=== PATIENT | female | born 1930 | race Caucasian/White ===

== ENCOUNTER 2017-01-08 14:03 | Emergency (ER) | payer OTHER ==
--- NOTE | 2017-01-08 14:08 | PDOC ---
History of Present Illness - General History Source: Patient Exam Limitations: No Limitations - History of Present Illness Initial Comments: 01/08/17 14:30 The patient is a 86 year old female, with a significant past medical history of HTN, spinal stenosis, who presents to the emergency department s/p mechanical fall about 10 days ago. The patient reports since the fall having pain in her left leg. She reports being able to walk on her left leg, but has pain with any weight bearing activities. She denies any LOC or head trauma from the fall. She denies any LE numbness and tingling. She denies recent fevers, chills, headache or dizziness. She denies recent nausea, vomit, diarrhea or constipation. She denies recent chest pain or shortness of breath. Allergies: NKA Past surgical history: Hysterectomy (years ago), Social history: Nonsmoker. Denies EtOH use and recreational drug use. Primary Care Physician: Dr.Anthony Khan <Antoine Rangel - Last Filed: 01/08/17 15:22> <Dario Montoya - Last Filed: 01/08/17 15:55> - General Chief Complaint: Pain, Acute Stated Complaint: LEFT LEG PAIN Time Seen by Provider: 01/08/17 14:07 Past History <Antoine Rangel - Last Filed: 01/08/17 15:22> <Dario Montoya - Last Filed: 01/08/17 15:55> - Past Medical History Allergies/Adverse Reactions: Allergies Allergy/AdvReac Type Severity Reaction Status Date / Time No Known Allergies Allergy Unverified 01/08/17 14:06 Home Medications: Ambulatory Orders Amlodipine Besylate 5 mg PO DAILY 01/08/17 Enalapril Maleate 20 mg PO DAILY 01/08/17 Walker [Ultra-Light Rollator] 1 each MC DAILY #1 each 01/08/17 Review of Systems - Review of Systems Able to Perform ROS?: Yes Comments:: 01/08/17 14:31 GENERAL/CONSTITUTIONAL: No fever or chills. No weakness. HEAD, EYES, EARS, NOSE AND THROAT: No change in vision. No ear pain or discharge. No sore throat. CARDIOVASCULAR: No chest pain or shortness of breath. RESPIRATORY: No cough, wheezing, or hemoptysis. GASTROINTESTINAL: No nausea, vomiting, diarrhea or constipation. GENITOURINARY: No dysuria, frequency, or change in urination. MUSCULOSKELETAL: +LLE pain. No joint or muscle swelling or pain. No neck or back pain. SKIN: No rash NEUROLOGIC: No headache, vertigo, loss of consciousness, or change in strength/ sensation. ENDOCRINE: No increased thirst. No abnormal weight change. HEMATOLOGIC/LYMPHATIC: No anemia, easy bleeding, or history of blood clots. ALLERGIC/IMMUNOLOGIC: No hives or skin allergy. <Antoine Rangel - Last Filed: 01/08/17 15:22> *Physical Exam - Vital Signs Last Vital Signs Temp Pulse Resp BP Pulse Ox 98.7 F 79 18 189/94 97 01/08/17 14:05 01/08/17 14:05 01/08/17 14:05 01/08/17 14:05 01/08/17 14:05 - Physical Exam Comments: 01/08/17 15:22 GENERAL: Awake, alert, and fully oriented, in no acute distress HEAD: No signs of trauma EYES: PERRLA, EOMI, sclera anicteric, conjunctiva clear ENT: Auricles normal inspection, hearing grossly normal, nares patent, oropharynx clear without exudates. Moist mucosa NECK: Normal ROM, supple, no lymphadenopathy, JVD, or masses LUNGS: Breath sounds equal, clear to auscultation bilaterally. No wheezes, and no crackles HEART: Regular rate and rhythm, normal S1 and S2, no murmurs, rubs or gallops ABDOMEN: Soft, nontender, normoactive bowel sounds. No guarding, no rebound. No masses EXTREMITIES: There is FROM of the left hip, including ER and IR rotation without pain or restriction. There is no external sign of injury, no bruising, ecchymosis, swelling, or edema of the thigh or lower leg. The pulses are full and symmetry. No sensory or motor deficits. No posterior calf swelling, tenderness, or cords. MIld tenderness over the ischial tuberosity of the buttock The pain seems to be only present with weight bearing, although she is ambulating well with only minimal limping. NEUROLOGICAL: Cranial nerves II through XII grossly intact. Normal speech, normal gait SKIN: Warm, Dry, normal turgor, no rashes or lesions noted. <Antoine Rangel - Last Filed: 01/08/17 15:22> *DC/Admit/Observation/Transfer - Attestations Scribe Attestion: 01/08/17 14:30 Documentation prepared by Antoine Rangel, acting as medical science liaison for Dario Briceno MD. <Antoine Rangel - Last Filed: 01/08/17 15:22> - Discharge Dispostion Admit: No <Dario Montoya - Last Filed: 01/08/17 15:55> Diagnosis at time of Disposition: Musculoskeletal pain - Discharge Dispostion Disposition: HOME Condition at time of disposition: Stable - Referrals Referrals: Dontrell Coughlin MD [Staff Physician] - 1 week - Patient Instructions Printed Discharge Instructions: DI for Tendinitis Additional Instructions: Gentle ice massage alternating with warm compresses/heat Tylenol for pain. Occasional Aleve or ibuprofen, Advil, or Motrin with as low a doses possible and not continuing more than one week. Maintain brief amounts of walking, but avoid prolonged standing and walking until pain improves. Using a walker may help. See orthopedist if there is no improvement or if condition worsens for further evaluation and treatment.
[2017-01-08 14:25] VITALS: BP 189/94; PULSE 79; TEMP 98.7; BMI 25.7
== END 2017-01-08 16:01 | disposition home or self-care (01) ==
LOC: FER 14:03
DX: M79.1 Myalgia (principal); I10 Essential (primary) hypertension; M48.00 Spinal stenosis, site unspecified; W18.30XA Fall on same level, unspecified, initial encounter; Y93.9 Activity, unspecified; Y92.9 Unspecified place or not applicable
CPT/HCPCS: 73523-TC; 99283-25

== ENCOUNTER 2018-01-14 09:15 | Emergency (ER) | payer OTHER ==
[2018-01-14 09:29] VITALS: BMI 27.2
[2018-01-14] MEDS ORDERED: SODIUM CHLORIDE 0.9% 500 ML INFUS.BAG IV ONE (09:32)
[2018-01-14] MEDS ORDERED: ACETAMINOPHEN 325 MG TABLET (FP) PO ONE (09:32)
[2018-01-14] MEDS ORDERED: LIDOCAINE 5% TOPICAL PATCH TP ONE (09:32)
--- NOTE | 2018-01-14 09:42 | PDOC ---
History of Present Illness - General Chief Complaint: Urinary Problem Stated Complaint: POSSIBLE UTI SWEATS AT HOME Time Seen by Provider: 01/14/18 09:17 History Source: Patient, Family - History of Present Illness Initial Comments: 01/14/18 09:42 Virgen 87 YOF with history of spinal stenosis, arthritis, HTN presenting with acute onset of sweats this morning upon waking up at 730am. States she was using warm water compress last night for back pain c/w chronic spinal stenosis. +urinary frequency with drinking water/hydrating, also notes darker urine. No dysuria, f/c, cp, sob, cough, n/v/d, abd pain, weakness or paresthesias, carlton or dizziness Past History - Past Medical History Allergies/Adverse Reactions: Allergies Allergy/AdvReac Type Severity Reaction Status Date / Time No Known Allergies Allergy Verified 01/14/18 09:17 Home Medications: Ambulatory Orders Amlodipine Besylate 5 mg PO DAILY 01/08/17 Enalapril Maleate 20 mg PO DAILY 01/08/17 Walker [Ultra-Light Rollator] 1 each MC DAILY #1 each 01/08/17 Cephalexin Monohydrate [Keflex -] 500 mg PO TID 10 Days #21 capsule 01/14/18 COPD: No HTN: Yes Other medical history: URINARY TRACT INFECTIONS, ARTHRITIS - Suicide/Smoking/Psychosocial Hx Smoking History: Never smoked Have you smoked in the past 12 months: No Information on smoking cessation initiated: No Hx Alcohol Use: No Drug/Substance Use Hx: No Substance Use Type: None Review of Systems - Review of Systems Able to Perform ROS?: Yes Comments:: 01/14/18 09:42 GENERAL/CONSTITUTIONAL: No fever or chills. No weakness. +sweats HEAD, EYES, EARS, NOSE AND THROAT: No sore throat or mouth pain. No difficulty swallowing.. No congestion. CARDIOVASCULAR: No chest pain or palpitations, syncope or edema. RESPIRATORY: No SOB, cough GASTROINTESTINAL No nausea/vomiting. No diarrhea or constipation. GENITOURINARY: +urinary frequency, dark urine. No hematuria, dysuria, urgency or other changes. MUSCULOSKELETAL: No joint or muscle swelling or pain. +chronic back pain. No neck pain SKIN: No rash or changes in skin color or lesions. NEUROLOGIC: No headache, vertigo, loss of consciousness, or change in strength/ sensation. No gait instability. No AMS/confusion ENDOCRINE: No increased thirst. No abnormal weight or appetite change or intolerance to heat/cold. HEMATOLOGIC/LYMPHATIC: No anemia, easy bruising/bleeding, or history of blood clots. ALLERGIC/IMMUNOLOGIC: No allergies All other systems reviewed and negative, or as documented in HPI. *Physical Exam - Vital Signs Last Vital Signs Temp Pulse Resp BP Pulse Ox 100.3 F H 105 H 18 175/92 98 01/14/18 09:29 01/14/18 09:16 01/14/18 09:16 01/14/18 09:16 01/14/18 09:16 - Physical Exam Comments: 01/14/18 09:42 General: Well appearing, awake and alert, NAD. HEENT: NCAT, PERRL, EOMI, clear conjunctiva, anicteric, moist mucus membranes, clear oropharynx, no oral lesions.. Neck: supple, no tenderness or LAD. Resp: CTAB, normal and even respirations, no respiratory distress CVS: RRR, no murmurs, 2+ peripheral pulses throughout, no peripheral edema Abdomen: soft, NTND, no peritoneal signs. No CVAT Back: nontender, normal inspection and ROM MSK: no edema, ADAMSON x4, ROM intact. No clubbing or cyanosis. normal bulk and tone. Neuro: alert, oriented appropriately; no focal neurologic deficits. Skin: warm and well perfused, cap refill <2 sec, normal color ED Treatment Course - LABORATORY CBC & Chemistry Diagram: 01/14/18 09:50 01/14/18 09:50 - RADIOLOGY Radiology Studies Ordered: Category Date Time Status CHEST X-RAY PORTABLE* [RAD] Stat Radiology 01/14/18 09:33 Ordered Medical Decision Making - Medical Decision Making 01/14/18 09:43 Virgen 87 YOF with history of spinal stenosis, arthritis, HTN presenting with acute onset of sweats and fever this morning. ?urinary sx. Vital signs notable for fever 100.3, likely contributing to sx. normotensive, HR in low 100s c/w fever. however, nontoxic, well appearing and no complaints. Interventions: IVF, tylenol. DDx. pneumonia, fever, UTI. basic labs, lactic, CXR and UA/Urine cx. no cp or sob, defer EKG testing. on clinical reassessment: fevers improved, remains well appearing and asymptomatic. tachycardia resolved, nonseptic appearing. CXR neg for pneumonia. labs reviewed, CBC wnl, lytes and Cr normal, no nsaids. hydrated, IV ceftriaxone x1 dose for acute UTI based on UA micro and clinical sx. reassured family, remains well, return precautions discussed, keflex TID PO x 10 day course and adequate hydration. antipyretics such as tylenol PRN fever control. spoke and updated PCP Dr. Khan over phone, agreeable to plan. pt's family verbalized clear understanding and no safety concerns, so no indication for admission at this time. plan: Return instructions provided -> Pt and family informed of my clinical impression, treatment recommendations and disposition plan. All questions answered to patient's satisfaction and she expressed understanding and comfort with this. Reasons for returning to the ED sooner discussed with the patient otherwise, follow up with her primary care physician. At the time of discharge, the patient is alert, improved, tolerating po and understands instructions. rx keflex x 10 day course, side effects discussed, if worsening sx >24-48 hours, return sooner for eval. 01/14/18 10:52 01/14/18 11:00 01/14/18 11:01 01/14/18 11:01 01/14/18 11:02 *DC/Admit/Observation/Transfer Diagnosis at time of Disposition: UTI (urinary tract infection) Qualifiers: Urinary tract infection type: acute cystitis Hematuria presence: with hematuria Qualified Code(s): N30.01 - Acute cystitis with hematuria - Discharge Dispostion Disposition: HOME Condition at time of disposition: Stable Decision to Admit order: No - Prescriptions Prescriptions: Cephalexin Monohydrate [Keflex -] 500 mg PO TID 10 Days #21 capsule - Referrals Referrals: Leo Khan MD [Primary Care Provider] - - Patient Instructions Printed Discharge Instructions: DI for Urinary Tract Infection (UTI), DI for Fever (Symptom) -- Adult Additional Instructions: Your laboratory / imaging results were normal, including your kidney function and electrolytes. you had a fever with a urinary tract infection. Follow up with your physician and consultants as instructed, take your medications as instructed including Keflex three times a day x 10 days. Return if worsening symptoms including fevers, headache, vomiting, visual or hearing disturbances, abdominal pain, chest pain, shortness of breath, syncope, dehydration, inability to take things by mouth/vomiting, altered mental status, or worsening concerning symptoms. your medications on discharge include antibiotics, side effects may include upset stomach, abdominal pain, vomiting, or diarrhea, if severe symptoms return sooner for evaluation. do not drink alcohol with your medications. Print Language: COLOMBIAN - Post Discharge Activity
[2018-01-14] MEDS ORDERED: ACETAMINOPHEN 325 MG TABLET (FP) ONE (09:48)
[2018-01-14 10:11] LABS: HEMATOCRIT 45.2 % (32.4-45.2); HEMOGLOBIN 15.4 GM/dl (10.7-15.3); MCH 31.4 pg (25.7-33.7); MCHC 34.1 g/dl (32.0-36.0); MEAN PLT VOLUME 8.1 fl (7.5-11.1); PLATELET COUNT 234 K/MM3 (134-434); RBC 4.92 M/mm3 (3.60-5.2); RDW 12.8 % (11.6-15.6); WHITE BLOOD COUNT 9.4 K/mm3 (4.0-10.8)
[2018-01-14 10:12] LABS: ADD RBC MORPHOLOGY YES
[2018-01-14 10:17] LABS: PLATELET ESTIMATE ADEQUATE
[2018-01-14 10:31] LABS: PH,URINE 5.5 (4.5-8); URINE BILIRUBIN Negative (NEGATIVE); URINE COLOR Yellow; URINE GLUCOSE (UA) Negative (NEGATIVE); URINE KETONE Negative (NEGATIVE); URINE NITRITE Negative (NEGATIVE); URINE UROBILINOGEN 0.2 (0.2-1.0)
[2018-01-14 10:32] LABS: URINE APPEARANCE SL CLOUDY; URINE LEUK ESTERASE 2+ (NEGATIVE); URINE PROTEIN 1+ (NEGATIVE)
[2018-01-14 10:33] LABS: ALBUMIN 4.4 g/dl (3.5-5.0); ALK PHOS 68 U/L (32-92); ANION GAP 9 (8-16); BILIRUBIN,TOTAL 0.8 mg/dl (0.2-1.0); BLOOD UREA NITROGEN 25 mg/dl (7-18); CALCIUM 9.6 mg/dl (8.4-10.2); CHLORIDE 98 mmol/L (98-107); CO2 26 mmol/L (22-28); CREATININE 0.9 mg/dl (0.6-1.3); GLUCOSE,RANDOM 143 mg/dl (74-106); POTASSIUM 4.5 mmol/L (3.5-5.1); SGOT/AST 27 U/L (10-42); SGPT/ALT 22 U/L (10-40); SODIUM 133 mmol/L (136-145); TOT PROT 7.7 g/dl (6.4-8.3)
[2018-01-14 10:44] LABS: URINE WBC 40-60 (0-5)
[2018-01-14 10:45] LABS: AMORP URATES FEW /hpf (NONE SEEN); EPI CELLS FEW /HPF; URINE BACTERIA MODERATE /hpf (NEGATIVE)
[2018-01-14] MEDS ORDERED: CEPHALEXIN MONOHYDRATE 500 MG CAPSULE (UD) PO ONE (10:49)
[2018-01-14 10:50] VITALS: BP 130/60; PULSE 87; TEMP 98.7
[2018-01-14] MEDS ORDERED: cefTRIAXone SODIUM 1 GM VIAL ONE (10:53)
[2018-01-14] MEDS ORDERED: LIDOCAINE PATCH REMOVAL MC SCH (22:00)
== END 2018-01-14 11:27 | disposition home or self-care (01) ==
LOC: SUPCPDRO 09:15 → FER 09:15
PROC: 3E03329 Introduction of Other Anti-infective into Peripheral Vein, Percutaneous Approach (ICD-10-PCS; principal; 2018-01-14)
PROC: 3E0337Z Introduction of Electrolytic and Water Balance Substance into Peripheral Vein, Percutaneous Approach (ICD-10-PCS; 2018-01-14)
DX: N30.01 Acute cystitis with hematuria (principal); G89.29 Other chronic pain; M54.9 Dorsalgia, unspecified; I10 Essential (primary) hypertension; M48.00 Spinal stenosis, site unspecified
CPT/HCPCS: 36415; 71045-TC-FY; 80053; 81003; 81015; 83605; 85025; 87086; 87186; 96361; 96374; 99282-25

== ENCOUNTER 2018-11-02 14:34 | Emergency (ER) | payer OTHER ==
[2018-11-02 14:41] VITALS: TEMP 98.3; BMI 27.4
[2018-11-02] MEDS ORDERED: ONDANSETRON 4 MG/2 ML VIAL IVPUSH ONE (15:47)
[2018-11-02] MEDS ORDERED: MECLIZINE HCL 25 MG TABLET (FP) PO ONE (15:47)
[2018-11-02] MEDS ORDERED: ONDANSETRON 4 MG/2 ML VIAL ONE (15:49)
[2018-11-02] MEDS ORDERED: MECLIZINE HCL 25 MG TABLET (FP) ONE (15:49)
[2018-11-02] MEDS ORDERED: SODIUM CHLORIDE 0.9% 500 ML INFUS.BAG IV ONE (15:49)
--- NOTE | 2018-11-02 16:01 | PDOC ---
Documentation entered by Evert Lechuga SCRIBE, acting as scribe for Maribel Pop MD. Maribel Pop MD: This documentation has been prepared by the Ankush bellamy Daniel, SCRIBE, under my direction and personally reviewed by me in its entirety. I confirm that the documentation accurately reflects all work, treatment, procedures, and medical decision making performed by me. History of Present Illness - General Chief Complaint: Lightheaded Stated Complaint: DIZZINESS History Source: Patient, Family Exam Limitations: No Limitations - History of Present Illness Initial Comments: 11/02/18 16:12 The patient is an 88 year old female with a past medical history of here today for spinal stenosis, arthritis, HTN, frequent UTIs, and solitary kidney evaluation of dizziness and nausea. As per the patients daughter the patient had a sudden onset of room spinning dizziness with associated nausea and vomiting at 12 PM. The patient reports that her nausea is worse with movement and notes one episode of burning with urination that has since resolved. Patient denies headache, lightheadedness. Denies fever, chills. Denies chest pain, shortness of breath. Denies nausea, vomiting, diarrhea, abdominal pain. Denies vision and hearing changes. Denies neurologic symptoms. Allergies: NSAIDS Social history: Denies illicit drug, alcohol, or tobacco use. PCP: Leo Khan Past History - Past Medical History Allergies/Adverse Reactions: Allergies Allergy/AdvReac Type Severity Reaction Status Date / Time NSAIDS (Non-Steroidal AdvReac Verified 11/02/18 14:51 Anti-Inflamma Home Medications: Ambulatory Orders Enalapril Maleate 20 mg PO DAILY 01/08/17 Hydrochlorothiazide [Hctz -] 25 mg PO DAILY 11/02/18 Meclizine HCl [Antivert -] 25 mg PO QID PRN #20 tablet 11/02/18 Ondansetron [Zofran Odt -] 4 mg SL TID PRN #9 od.tablet 11/02/18 COPD: No HTN: Yes - Suicide/Smoking/Psychosocial Hx Smoking History: Never smoked Have you smoked in the past 12 months: No Information on smoking cessation initiated: No Hx Alcohol Use: No Drug/Substance Use Hx: No Substance Use Type: None Review of Systems - Review of Systems Able to Perform ROS?: Yes Comments:: 11/02/18 16:12 Constitutional: no fevers or chills. HEENT: no headache or dizziness. No congestion. No visual/hearing disturbances. CVS: no cp or syncope. Resp: no sob. No cough. Gastrointestinal: +nausea. +vomiting. no abdominal pain. Genitourinary: no urinary sx, hematuria. MUSCULOSKELETAL: No joint pain and swelling. No neck or back pain. SKIN: no redness or skin changes, no discharge, no rash. No wounds. Hematologic: no easy bruising/bleeding. NEUROLOGIC: +dizziness. No headache, LOC or altered mental status. No weakness, numbness or tingling. Psych: no anxiety or depression Allergic/Immunologic: no allergies All other systems reviewed and negative, or as documented in HPI. *Physical Exam - Vital Signs Last Vital Signs Temp Pulse Resp BP Pulse Ox 98.3 F 87 18 146/101 H 98 11/02/18 14:35 11/02/18 14:35 11/02/18 14:35 11/02/18 14:35 11/02/18 14:35 - Physical Exam Comments: 11/02/18 16:13 General: Well appearing, awake and alert, NAD. HEENT: NCAT, PERRL, EOMI, clear conjunctiva, anicteric, moist mucus membranes, clear oropharynx, no oral lesions.. No nystagmus. Neck: neck supple, FROM Resp: CTAB, normal and even respirations, no respiratory distress CVS: RRR, no murmurs, 2+ peripheral pulses throughout, no peripheral edema Abdomen: soft, NTND, no rebound or guarding. No CVAT. Back: nontender, normal inspection and ROM MSK: no edema, ADAMSON x4, ROM intact. No clubbing or cyanosis. normal bulk and tone. Extremities: no calf tenderness Neuro: Alert, oriented to person time and place. No carotid bruit, CN II-XII grossly intact. Strength prox and distally 5/5 throughout. Sensation grossly intact to light touch. ADAMSON x4. No cerebellar signs, no dysmetria, bilateral finger to nose equal and symmetric. Speech clear. gait stable, no ataxia Skin: warm and well perfused, cap refill <2 sec, normal color 11/02/18 18:05 Heart Score/ECG Review #1 ECG reviewed & interpreted by me at: 14:45 General ECG Interpretation: Sinus Rhythm, Normal Rate Compared to previous ECG there are: No significant change 11/02/18 16:01 EKG normal sinus rhythm at 83 bpm, no interval abnormalities,Wide QRS with LBBB , ST and T wave segments and morphology normal. Nonspecific T wave abnormalities - unchanged. ED Treatment Course - LABORATORY CBC & Chemistry Diagram: 11/02/18 15:45 11/02/18 15:45 - RADIOLOGY Radiology Studies Ordered: Category Date Time Status HEAD CT WITHOUT CONTRAST [CT] Stat CT Scan 11/02/18 15:47 Ordered Medical Decision Making - Medical Decision Making 11/02/18 15:59 See HPI for details Vital signs reviewed, mildly hypertensive, but +acutely nauseous DDX vertigo, central vs peripheral, labrynthitis, BPPV, infection, dehydration, electrolyte imbalance, metabolic derangements, ACS Prior notes reviewed, including admissions, discharges and consultations. laboratory results and imaging reviewed, basic labs and lytes wnl, notable for mild hyponatremia, but not symptomatic, appears euvolemic, some vomiting so perhaps some hyponatremia component. UA_neg prelim for infection. no wbc and no leuk esterase, no other clinical sx of UTI. Cardiac panel_neg trop. doubt cardiac EKG normal sinus rhythm at 83 bpm, no interval abnormalities,Wide QRS with LBBB , ST and T wave segments and morphology normal. Nonspecific T wave abnormalities - unchanged. 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 parasinus disease - no focal neuro deficits, well appearing, n/v controlled. gait stable. BP and VS improved, NSR on tele monitor and 130/90s on discharge feels much improved, eager for discharge referrals given. instructions on meds, rx meclizine and zofran, side effect profile discussed, hydration and prevention. Discharge: Pt to be discharged in stable condition. Patient and family made aware of impression and plan, return precautions discussed (including but not limited to worsening pain or symptoms), fevers, or signs of infection, chest pain, respiratory distress, inability to tolerate oral intake, dehydration, syncope, or neurologic changes). Follow up with PMD and/or neuro specialist as recommended, follow up information provided, take medications as instructed for duration of time. continue with supportive care, avoid triggers and precipitants. All questions answered to patient's satisfaction and expressed understanding and comfort with this. Patient does not suffer from an acute life- threatening medical condition at this time and is safe for outpatient follow- up. 11/02/18 16:25 11/02/18 16:55 11/02/18 18:04 11/02/18 18:06 *DC/Admit/Observation/Transfer Diagnosis at time of Disposition: Vertigo - Discharge Dispostion Disposition: HOME Condition at time of disposition: Stable Decision to Admit order: No - Prescriptions Prescriptions: Meclizine HCl [Antivert -] 25 mg PO QID PRN #20 tablet PRN Reason: dizziness Ondansetron [Zofran Odt -] 4 mg SL TID PRN #9 od.tablet PRN Reason: Nausea - Referrals Referrals: Leo Khan MD [Primary Care Provider] - Luiz Campa MD [Staff Physician] - Iain Borden MD [Staff Physician] - Shukri Ferreira MD [Staff Physician] - - Patient Instructions Printed Discharge Instructions: DI for Vertigo Additional Instructions: 1) Please follow-up with your primary care doctor in the next 1-2 days. Please call tomorrow for for any urgent issues. you have likely peripheral vertigo that caused your symptoms 2) You were given a copy of the tests performed today. Please bring the results with you and review them with your primary care doctor. Your laboratory / imaging results were normal, including your blood work except for mildly low sodium [address] scan without acute brain pathology or new stroke 3) If you have any worsening of symptoms or any other concerns please return to the ED immediately. Return if worsening symptoms including fevers, headache, vomiting, visual or hearing disturbances, abdominal pain, chest pain, shortness of breath, syncope, dehydration, inability to take things by mouth/vomiting, altered mental status, weakness, paresthesias, falling or head injury, lethargy , visual or hearing disturbances, or worsening concerning symptoms. 4) Please continue taking your home medications as directed. your medications on discharge include zofran every 8 hours as needed for nausea and meclizine for dizziness. . side effects may include upset stomach, abdominal pain, vomiting, or diarrhea. do not drink alcohol with your medications. meclizine can cause dry mouth and drowsiness, do not drive Stay well hydrated and rest adequately. Make an appointment. If you cannot follow-up with your primary care doctor please return to the ED referrals to neurologist and ear nose throat doctor given. - Post Discharge Activity
[2018-11-02 16:37] LABS: BASO % 0.1 % (0-2.0); EOS % 1.8 % (0-4.5); HEMATOCRIT 40.6 % (32.4-45.2); HEMOGLOBIN 13.5 GM/dl (10.7-15.3); LYMPH % 17.6 % (8-40); MCH 30.9 pg (25.7-33.7); MCHC 33.2 g/dl (32.0-36.0); MEAN CELL VOLUME 92.9 fl (80-96); MEAN PLT VOLUME 8.6 fl (7.5-11.1); NEUT % 74.5 % (42.8-82.8); PLATELET COUNT 253 K/MM3 (134-434); RBC 4.36 M/mm3 (3.60-5.2); RDW 13.1 % (11.6-15.6); WHITE BLOOD COUNT 9.1 K/mm3 (4.0-10.8)
[2018-11-02 16:41] LABS: ALBUMIN 4.1 g/dl (3.4-5.0); BILIRUBIN,TOTAL 0.3 mg/dl (0.2-1); CALCIUM 9.3 mg/dl (8.5-10); CREATININE 0.8 mg/dl (0.55-1.3); POTASSIUM 4.4 mmol/L (3.5-5.1)
[2018-11-02 17:37] VITALS: BP 132/72; PULSE 79
--- NOTE | 2018-11-03 12:14 | EKG ---
Test Reason : Blood Pressure : / mmHG Vent. Rate : 083 BPM Atrial Rate : 083 BPM P-R Int : 200 ms QRS Dur : 144 ms QT Int : 410 ms P-R-T Axes : 029 -27 042 degrees QTc Int : 481 ms NORMAL SINUS RHYTHM LEFT BUNDLE BRANCH BLOCK ABNORMAL ECG WHEN COMPARED WITH ECG OF 17-NOV-2008 10:15, NO SIGNIFICANT CHANGE WAS FOUND Confirmed by MD Deepak, Evert ([id number]) on 11/03/2018 12:13:32 PM Referred By: RAUL PATTERSON Confirmed By:Evert Sotelo MD
== END 2018-11-02 18:23 | disposition home or self-care (01) ==
LOC: FER 14:34
PROC: 3E033GC Introduction of Other Therapeutic Substance into Peripheral Vein, Percutaneous Approach (ICD-10-PCS; principal; 2018-11-02)
PROC: 3E0337Z Introduction of Electrolytic and Water Balance Substance into Peripheral Vein, Percutaneous Approach (ICD-10-PCS; 2018-11-02)
DX: R42 Dizziness and giddiness (principal); I10 Essential (primary) hypertension; N28.89 Other specified disorders of kidney and ureter; M48.00 Spinal stenosis, site unspecified; Z87.440 Personal history of urinary (tract) infections
CPT/HCPCS: 36415; 70450-TC; 80053; 81003; 81015; 84484; 85025; 87086; 93005; 96361; 96374; 99284-25

== ENCOUNTER 2018-11-16 19:00 | Emergency (ER) | payer OTHER ==
[2018-11-16 19:06] VITALS: BP 162/78; PULSE 81; TEMP 98.4; BMI 27.1
[2018-11-16] MEDS ORDERED: GABAPENTIN 300 MG CAPSULE (FP) PO ONE (19:24)
[2018-11-16] MEDS ORDERED: DEXAMETHASONE SOD PHOSPHATE 4 MG/1 ML VIAL IM ONE (19:24)
[2018-11-16] MEDS ORDERED: LIDOCAINE 5% TOPICAL PATCH TP ONE (19:24)
[2018-11-16] MEDS ORDERED: DEXAMETHASONE SOD PHOSPHATE 4 MG/1 ML VIAL ONE (19:29)
[2018-11-16] MEDS ORDERED: CYCLOBENZAPRINE HCL 10 MG TABLET (FP) ONE (19:29)
[2018-11-16] MEDS ORDERED: GABAPENTIN 300 MG CAPSULE (FP) ONE (19:29)
[2018-11-16] MEDS ORDERED: LIDOCAINE 5% TOPICAL PATCH ONE (19:29)
[2018-11-16] MEDS ORDERED: CYCLOBENZAPRINE HCL 5 MG TABLET PO SCH (19:30)
--- NOTE | 2018-11-16 21:50 | PDOC ---
Documentation entered by Mary Jane Boyd SCRIBE, acting as scribe for Abbe Ware MD. Abbe Ware MD: This documentation has been prepared by the Oliver bellamy Aiswarya, SCRIBE, under my direction and personally reviewed by me in its entirety. I confirm that the documentation accurately reflects all work, treatment, procedures, and medical decision making performed by me. History of Present Illness - General Chief Complaint: Back Pain Stated Complaint: LOWER BACK PAIN Time Seen by Provider: 11/16/18 19:14 History Source: Patient Exam Limitations: No Limitations - History of Present Illness Initial Comments: 11/16/18 20:05 The patient is a 88 year old female, with a significant PMH of spinal stenosis , HTN, and macular degeneration, who presents to the emergency department with right sided pain secondary to her spinal stenosis. The patient states pain is located to the right back side that radiates down to the right leg with a severity of 10/10. She notes pain is exacerbated when standing or walking and alleviated when sitting, no relief with Tylenol (last dose given at 3 pm). The patient states she was prescribed gabapentin in the past for 3 months and notes no relief. She also mentions she only has one kidney. The patient denies chest pain, shortness of breath, headache and dizziness.Denies fever, chills, nausea, vomit, diarrhea and constipation. Denies any numbness or tingling. Allergies: NSAIDS Past surgical history: None reported Social history: No reported PCP: Leo Khan Past History - Past Medical History Allergies/Adverse Reactions: Allergies Allergy/AdvReac Type Severity Reaction Status Date / Time NSAIDS (Non-Steroidal AdvReac Verified 11/16/18 19:01 Anti-Inflamma Home Medications: Ambulatory Orders Enalapril Maleate 20 mg PO DAILY 01/08/17 Hydrochlorothiazide [Hctz -] 25 mg PO DAILY 11/02/18 Acetaminophen W/ Codeine #3 [Tylenol # 3 -] 1 tab PO Q6H #10 tablet MDD 4 Cyclobenzaprine HCl [Flexeril -] 10 mg PO HS #7 tablet 11/16/18 Gabapentin 100 mg PO TID #28 capsule 11/16/18 Lidocaine 5% Patch [Lidoderm -] 1 patch TP DAILY #7 patch 11/16/18 Methylprednisolone [Medrol Dose Chaim] 4 mg PO ASDIR #21 tablet 11/16/18 COPD: No Disorders: Yes (ONLY HAS ONE KIDNEY) HTN: Yes - Suicide/Smoking/Psychosocial Hx Smoking History: Never smoked Have you smoked in the past 12 months: No Information on smoking cessation initiated: No Hx Alcohol Use: No Drug/Substance Use Hx: No Substance Use Type: None Review of Systems - Review of Systems Able to Perform ROS?: Yes Comments:: 11/16/18 20:07 ROS: A complete review of 10 out of 10 review of systems is taken and is negative apart from what is previously mentioned below and in the HPI. *Physical Exam - Vital Signs Last Vital Signs Temp Pulse Resp BP Pulse Ox 98.4 F 81 16 162/78 100 11/16/18 19:00 11/16/18 19:00 11/16/18 19:00 11/16/18 19:00 11/16/18 19:00 - Physical Exam Comments: 11/16/18 20:08 Vitals: Triage vital signs reviewed General Appearance: No acute distress, well nourished, well developed Cardiac: Regular rate and rhythm, no murmurs, no rubs, no gallops Lungs: Clear to auscultation bilateral, good air movement bilaterally Abdomen: Soft, nondistended, normal bowel sounds, nontender to palpation Extremities: +Reproducible right midline tenderness on palpation. No numbness or tingling of the legs. Skin: Warm and dry, no rashes or lesions, no rash, no petechiae Neuro: AOX3; Cranial Nerves 2-12 grossly intact, Strength intact to all extremities, Sensation intact to all extremities,gait normal, Reflexes at knee and ankle intact Psych: Normal mood, normal affect Medical Decision Making - Medical Decision Making 11/16/18 22:04 80 years old with chronic low back pain sciatica has seen pain management in the past has had MRIs in the past presents with worsening midline right-sided back discomfort some radiation down leg no weakness no numbness no new incontinence (patient incontinent at baseline) No new neuro findings on examination patient cannot take NSAIDs secondary to having 1 kidney has all ready tried Tylenol with Codeine at home was previously on gabapentin with limited relief Here in the emergency department a cocktail of Decadron IM, gabapentin, Flexeril and a lidocaine patch was used with some improvement in the patient's pain. She is now able to ambulate. She'll follow-up in 1-2 days with her pain management doctor for further management we will restart her gabapentin prescribe her a few more Tylenol with Codeine at home as well as Flexeril and lidocaine patches and medrol dose pack Patient able to more comfortably able to ambulate out of the ED Findings, the need for follow-up and strict return instructions discussed with patient. *DC/Admit/Observation/Transfer Diagnosis at time of Disposition: Back pain Qualifiers: Back pain location: low back pain Chronicity: chronic Back pain laterality: right Sciatica presence: with sciatica Sciatica laterality: sciatica of right side Qualified Code(s): M54.41 - Lumbago with sciatica, right side; G89.29 - Other chronic pain - Discharge Dispostion Disposition: HOME Condition at time of disposition: Stable Decision to Admit order: No - Prescriptions Prescriptions: Acetaminophen W/ Codeine #3 [Tylenol # 3 -] 1 tab PO Q6H #10 tablet MDD 4 Cyclobenzaprine HCl [Flexeril -] 10 mg PO HS #7 tablet Gabapentin 100 mg PO TID #28 capsule Lidocaine 5% Patch [Lidoderm -] 1 patch TP DAILY #7 patch Methylprednisolone [Medrol Dose Chaim] 4 mg PO ASDIR #21 tablet - Referrals Referrals: Leo Khan MD [Primary Care Provider] - Miles Felipe MD [Staff Physician] - - Patient Instructions Printed Discharge Instructions: Low Back Pain Additional Instructions: Follow-up with your doctor tomorrow to discuss all medications prescribed. Follow-up with her pain management doctor in 1-2 days. Return to the emergency department [facility] for any new weakness numbness or for any concerns. - Post Discharge Activity
[2018-11-16] MEDS ORDERED: LIDOCAINE PATCH REMOVAL MC SCH (22:00)
== END 2018-11-16 22:12 | disposition home or self-care (01) ==
LOC: FER 19:00
PROC: 3E023GC Introduction of Other Therapeutic Substance into Muscle, Percutaneous Approach (ICD-10-PCS; principal; 2018-11-16)
DX: M54.41 Lumbago with sciatica, right side (principal); G89.29 Other chronic pain; I10 Essential (primary) hypertension; N28.89 Other specified disorders of kidney and ureter; H35.30 Unspecified macular degeneration
CPT/HCPCS: 72131-TC; 96372; 99283-25

== ENCOUNTER 2019-08-01 09:05 | Emergency (ER) | payer OTHER ==
[2019-08-01 09:24] VITALS: BP 140/70; PULSE 86; TEMP 98.2; BMI 27.4
--- NOTE | 2019-08-01 10:32 | PDOC ---
History of Present Illness - General Chief Complaint: Back Pain Stated Complaint: LEG PAIN Time Seen by Provider: 08/01/19 09:09 - History of Present Illness Initial Comments: 08/01/19 10:25 Chief complaint: Right leg pain HPI: Patient with history of spinal stenosis and disc disease at multiple levels complains of pain in the right hip, lateral right thigh and calf, to the foot for about 1 week. She is having difficulty ambulating because of the pain. There is been no known acute trauma. She has had similar symptoms in the past in the left leg. She is taking gabapentin, with intermittent use of Flexeril, Tylenol with codeine, and has used a lidocaine patch for 2 days without relief. Review of systems: Denies fever/chills, headache, URI symptoms, sore throat, cough, chest pain, shortness of breath, abdominal pain, nausea, vomiting, diarrhea, visual or other focal neurologic symptoms, urinary tract symptoms, vaginal bleeding or discharge. No saddle anesthesia, urinary retention or incontinence, fecal retention or incontinence. Remainder of systems reviewed and negative Past medical history: High blood pressure on enalapril and hydrochlorothiazide, chronic back pain with spinal stenosis. Has had injections in the past by pain management physician. Social history: Lives with family, cares for herself, mentally intact, no tobacco alcohol or drugs Family history: Reviewed and noncontributory Physical exam: Alert, cheerful and cooperative, no acute distress at rest. Pain with weightbearing and ambulation Afebrile, vital signs normal HEENT normal Neck supple without bruit mass or nodes Chest clear CV regular without murmur rub or gallop Abdomen benign Neurological C2 to 12 intact. Strength full and symmetric. No focal sensorimotor deficits. Gait labored because of right leg pain. Normal perineal sensation LS spine: There is loss of the normal lumbar lordosis, with resultant straightening, paravertebral muscle spasm, and mild tenderness over the right sacral area. Straight leg raising, however, is negative, with good range of motion. Pulses are full and symmetric. No distal sensory or motor deficits. No skin changes in the toes or excessive coolness that could suggest arterial insufficiency. Full range of motion of the right hip in internal and external rotation without pain or limited motion. Impression: Symptoms suggest sciatica, however, straight leg raising is negative. Most recent CT performed here in October 2018 showed extensive DJD, disc disease, and spinal stenosis Plan: Repeat x-ray to rule out acute compression fracture. Symptomatic treatment and follow-up orthopedist as directed. 08/01/19 11:01 Past History - Past Medical History Allergies/Adverse Reactions: Allergies Allergy/AdvReac Type Severity Reaction Status Date / Time NSAIDS (Non-Steroidal AdvReac Verified 08/01/19 09:14 Anti-Inflamma Home Medications: Ambulatory Orders Enalapril Maleate 20 mg PO DAILY 01/08/17 Hydrochlorothiazide [Hctz -] 25 mg PO DAILY 11/02/18 Acetaminophen W/ Codeine #3 [Tylenol # 3 -] 1 tab PO Q6H #10 tablet MDD 4 Cyclobenzaprine HCl [Flexeril -] 10 mg PO HS #7 tablet 11/16/18 Gabapentin 100 mg PO TID #28 capsule 11/16/18 Lidocaine 5% Patch [Lidoderm -] 1 patch TP DAILY #7 patch 11/16/18 COPD: No Disorders: Yes (ONLY HAS ONE KIDNEY) HTN: Yes Other medical history: BACK PAIN - Psycho Social/Smoking Cessation Hx Smoking History: Never smoked Have you smoked in the past 12 months: No Hx Alcohol Use: No Drug/Substance Use Hx: No Substance Use Type: None *Physical Exam - Vital Signs Last Vital Signs Temp Pulse Resp BP Pulse Ox 98.2 F 86 16 140/70 99 08/01/19 09:06 08/01/19 09:06 08/01/19 09:06 08/01/19 09:06 08/01/19 09:06 ED Treatment Course - RADIOLOGY Radiology Studies Ordered: Category Date Time Status SPINE-LUMBAR SACRAL [RAD] Stat Radiology 08/01/19 10:24 Ordered Medical Decision Making - Medical Decision Making 08/01/19 11:29 X-ray shows scoliosis and DJD. No definite compression fracture. Likely diagnosis is exacerbation of lumbar disc disease/radiculopathy. Use of anti-inflammatories is limited due to kidney disease Treatment options discussed with patient and her daughter. Elected to continue with acetaminophen, gabapentin, Flexeril, and lidocaine patches. Heat and gentle massage. Follow-up with receiving specialist Dr. Devine if no improvement. Adequately ambulatory and in no significant pain or other distress at discharge with daughter to follow-up as directed. Discharge - Discharge Information Problems reviewed: Yes Clinical Impression/Diagnosis: Sciatica Qualifiers: Laterality: right Qualified Code(s): M54.31 - Sciatica, right side Condition: Stable Disposition: HOME - Admission No - Follow up/Referral Referrals: Leo Khan MD [Primary Care Provider] - 1 week - Patient Discharge Instructions Patient Printed Discharge Instructions: DI for Sciatica Additional Instructions: Rest, but maintain limited amount of standing and walking around the house. Heat. Gentle massage. Medications as directed. Return to ER if symptoms worsen or additional symptoms develop Otherwise follow-up primary physician/orthopedist if no improvement. - Post Discharge Activity
== END 2019-08-01 11:41 | disposition home or self-care (01) ==
LOC: FER 09:05
DX: M54.31 Sciatica, right side (principal); Z88.8 Allergy status to other drugs, medicaments and biological substances; M48.00 Spinal stenosis, site unspecified; Z90.5 Acquired absence of kidney; I10 Essential (primary) hypertension; G89.29 Other chronic pain
CPT/HCPCS: 72100-TC-FY; 99283-25